=== PATIENT | female | born 1985 | race Caucasian/White ===

== ENCOUNTER 2021-10-02 21:10 | Emergency (ER) | payer MEDICAID ==
[~2021-10-02] VITALS: Ht 170.2 cm; Wt 100.0 kg
[2021-10-02 21:21] VITALS: BP 130/104
--- NOTE | 2021-10-02 21:37 | NUR ---
BREATHING TX GIVEN BACK TO BACK FOR SOB.
[2021-10-02] MEDS ORDERED: VENTOLIN HFA IN (22:02)
[2021-10-02 22:06] VITALS: BP 130/104
== END 2021-10-02 22:11 | disposition home or self-care (01) ==
LOC: EDSEX 21:10 → ED 21:10
DX: O99.519 Diseases of the respiratory system complicating pregnancy, unspecified trimester (principal); J45.901 Unspecified asthma with (acute) exacerbation; O99.330 Smoking (tobacco) complicating pregnancy, unspecified trimester; F17.210 Nicotine dependence, cigarettes, uncomplicated; Z3A.00 Weeks of gestation of pregnancy not specified

== ENCOUNTER 2021-11-03 12:08 | Emergency (ER) | payer MEDICAID ==
[~2021-11-03] VITALS: Ht 170.2 cm; Wt 125.0 kg
[2021-11-03] VITALS (10 sets, daily range): BP systolic 112–131; BP diastolic 79–102
[~2021-11-03 12:08] MED LIST: VENTOLIN HFA IN
[2021-11-03 13:04] LABS: HEMATOCRIT 35.3 % (37.0-47.0); HEMOGLOBIN 11.2 g/dl (12.0-16.0); IMMATURE GRANULOCYTES 0.5 % (0.0-5.0); MEAN CELL VOLUME 92.9 fL CALC (80.0-100.0); MEAN CORPUSCULAR HGB 29.5 pG CALC (26.0-32.0); MEAN CORPUSCULAR HGB CONC 31.7 g/dL CAL (32.0-36.0); NEUT# 9.25 thou/uL (2.00-7.15); RED BLOOD COUNT 3.8 mill/uL (4.20-5.60); RED CELL DISTRI WIDTH 16.7 % (11.5-15.5)
[2021-11-03 13:22] LABS: ALBUMIN 3.4 g/dL (3.2-5.0); ALKALINE PHOSPHATASE 108 u/l (38-126); ANION GAP 12 (6-22 (CALC)); BILIRUBIN, TOTAL 0.3 mg/dL (0.0-1.4); BUN 4 mg/dL (7-17); BUN/CREATININE RATIO 9 (12-20 (CALC)); CARBON DIOXIDE 19 mmol/l (22-30); CHLORIDE 107 mmol/l (95-108); CREATININE 0.5 mg/dL (0.5-1.0); GFR FOR AFR.AMER. > 60 ML/MIN (>=60 (CALC)); GFR OTHER RACES > 60 ML/MIN (>=60 (CALC)); POTASSIUM 3.9 mmol/l (3.5-5.1); SGOT/AST 19 u/l (14-36); SODIUM 134 mmol/l (137-146); TOTAL PROTEIN 6.7 g/dL (6.3-8.2)
== END 2021-11-03 14:36 | disposition home or self-care (01) ==
LOC: ED 12:08
PROVIDERS: Family Medicine
DX: O26.893 Other specified pregnancy related conditions, third trimester (principal); R51.9 Headache, unspecified; O99.513 Diseases of the respiratory system complicating pregnancy, third trimester; J45.909 Unspecified asthma, uncomplicated; O99.333 Smoking (tobacco) complicating pregnancy, third trimester; F17.200 Nicotine dependence, unspecified, uncomplicated; Z3A.33 33 weeks gestation of pregnancy